=== PATIENT | female | born 1955 | race Two or more races ===

== ENCOUNTER 2016-05-07 11:37 | Emergency (ER) | payer SELFPAY ==
[~2016-05-07] VITALS: Ht 165.1 cm; Wt 81.6 kg
[2016-05-07] MEDS ORDERED: cefTRIAXone 1GM/50ML D5W 50 ML IV ONE (12:15)
[2016-05-07] MEDS ORDERED: cloNIDine HCL 0.1 MG TAB PO ONE (12:15)
[2016-05-07] MEDS ORDERED: LORazepam 2MG/ML-1ML VIAL IV ONE (12:15)
[2016-05-07] MEDS ORDERED: SODIUM CHLORIDE 0.9% 1,000 ML IV ONE (12:15)
[2016-05-07] MEDS ORDERED: SODIUM CHLORIDE 0.9% 250 ML IV ONE (12:15)
[2016-05-07 12:51] LABS: Basophils # (auto) 0.1 uL; Basophils % (auto) 0.8 % (0.0-2.0); Eosinophils # (auto) 0.1 uL; Eosinophils % (auto) 1.1 % (0.0-7.0); Hematocrit 41.4 % (36.0-46.0); Hemoglobin 13.3 g/dL (12.2-16.2); Lymphocytes # (auto) 2.8 uL; Lymphocytes % (auto) 37.4 % (10.0-50.0); Mean Corpuscular Hemoglobin 28.2 pg (28.0-32.0); Mean Corpuscular Hgb Conc. 32.2 g/dL (32.0-36.0); Mean Corpuscular Volume 87.5 fL (80.0-100.0); Mean Platelet Volume 10.3 fL (7.4-10.4); Monocytes # (auto) 0.5 uL; Monocytes % (auto) 6.8 % (0.0-12.0); Neutrophils # (auto) 4.1 uL; Neutrophils % (auto) 53.9 % (37.0-80.0); Platelet Count (auto) 238 10^3/uL (140-450); Red Cell Distribution Width 13.1 % (11.6-16.0); White Blood Cell 7.6 10^3/uL (4.4-10.8)
[2016-05-07 13:01] VITALS: BP 162/80
[2016-05-07 13:15] LABS: Albumin 3.3 g/dL (3.4-5.0); BUN/Creatinine Ratio 23.3; Bilirubin, Total 0.6 mg/dL (0.2-1.0); Calcium 8.6 mg/dL (8.5-10.1); Total Protein 7.2 g/dL (6.4-8.2)
[2016-05-07] MEDS ORDERED: InsuLIN REG 1unit/0.01ml Soln (100units/ml) IV ONE (13:45)
== END 2016-05-07 15:08 | disposition home or self-care (01) ==
LOC: ER 11:43
DX: I10 Essential (primary) hypertension (principal); E11.621 Type 2 diabetes mellitus with foot ulcer; E11.65 Type 2 diabetes mellitus with hyperglycemia
CPT/HCPCS: 36415; 70450; 71010; 80053; 84484; 85025; 93005; 96361; 96365; 96375; 99285; J0696; J2060; J7030

== ENCOUNTER 2016-05-30 14:28 | Inpatient (IN) | payer MEDICAID ==
[~2016-05-30] VITALS: Ht 165.1 cm; Wt 87.0 kg
[2016-05-30] MEDS ORDERED: SODIUM CHLORIDE 0.9% 1,000 ML IV ONE ×2 (15:55→18:15)
[2016-05-30] MEDS ORDERED: METOCLOPRAMIDE HCL 5MG/ml INJ 2ml VIAL IV ONE (16:00)
[2016-05-30] MEDS ORDERED: LABETALOL HCL 5 MG/ML 4ML SYRINGE IV ONE (16:00)
[2016-05-30] MEDS ORDERED: cefTRIAXone 1GM/50ML D5W 50 ML IV ONE (16:00)
[2016-05-30] MEDS ORDERED: KETOROLAC TROMETH 30 MG/ML 1ML VIAL IV ONE (16:00)
[2016-05-30 16:50] LABS: Basophils # (auto) 0.1 uL; Basophils % (auto) 0.6 % (0.0-2.0); Eosinophils # (auto) 0.1 uL; Hematocrit 42.2 % (36.0-46.0); Hemoglobin 14.3 g/dL (12.2-16.2); Lymphocytes # (auto) 3.6 uL; Mean Corpuscular Hemoglobin 29.5 pg (28.0-32.0); Mean Corpuscular Hgb Conc. 33.8 g/dL (32.0-36.0); Mean Corpuscular Volume 87.3 fL (80.0-100.0); Mean Platelet Volume 9.8 fL (7.4-10.4); Monocytes # (auto) 0.5 uL; Monocytes % (auto) 5.9 % (0.0-12.0); Neutrophils # (auto) 4.5 uL; Neutrophils % (auto) 51.5 % (37.0-80.0); Platelet Count (auto) 267 10^3/uL (140-450); Red Cell Distribution Width 12.9 % (11.6-16.0); White Blood Cell 8.8 10^3/uL (4.4-10.8)
[2016-05-30 17:00] LABS: Albumin 3.3 g/dL (3.4-5.0); BUN/Creatinine Ratio 36.2; Bilirubin, Total 0.5 mg/dL (0.2-1.0); Magnesium 2.2 mg/dL (1.6-2.6); Potassium 3.9 mmol/L (3.5-5.1); Total Protein 7.4 g/dL (6.4-8.2)
[2016-05-30] MEDS ORDERED: TEMAZEPAM 15 MG CAP PO PRN (18:15)
[2016-05-30] MEDS ORDERED: ONDANSETRON HCL 4 MG/2 ML VIAL IV PRN (18:15)
[2016-05-30] MEDS ORDERED: VANCOMYCIN PER PHARMACY 0 MG IV SCH (18:15)
[2016-05-30] MEDS ORDERED: ACETAMINOPHEN 325 MG TAB PO PRN (18:15)
[2016-05-30] MEDS ORDERED: MORPHINE SULF INJ 2 MG/ML SYRINGE 1ML IV PRN (18:15)
[2016-05-30] MEDS ORDERED: DEXTROSE (50%) 50ML SYRG IV PRN (18:15)
[2016-05-30] MEDS ORDERED: VALSARTAN 80 MG TAB PO ONE ×2 (18:30→19:30)
[2016-05-30] MEDS ORDERED: amLODIPine BESYLATE 5 MG TAB PO ONE (18:30)
[2016-05-30] MEDS: VANCOMYCIN 750 MG in D5W 5% 250 ML IV SCH (19:44)
[2016-05-30 21:00] VITALS: BP 156/71
[2016-05-30] MEDS: ACCU-CHEK COMFORT CURVE STRIP VI SCH (21:29)
[2016-05-30] MEDS: InsuLIN REG 1unit/0.01ml Soln (100units/ml) SC SCH (21:30)
[2016-05-30 22:00] VITALS: BP 140/69
[2016-05-31 05:00] VITALS: BP 160/83
[2016-05-31] MEDS: ACCU-CHEK COMFORT CURVE STRIP VI SCH ×4 (05:53→20:54)
[2016-05-31] MEDS: InsuLIN REG 1unit/0.01ml Soln (100units/ml) SC SCH ×4 (06:10→20:57)
[2016-05-31] MEDS: VANCOMYCIN 750 MG in D5W 5% 250 ML IV SCH ×2 (06:11→18:43)
[2016-05-31 07:07] LABS: Calcium 8.2 mg/dL (8.5-10.1); Potassium 3.8 mmol/L (3.5-5.1)
[2016-05-31] MEDS: HYDROcodone-ACET 5/325MG TAB PO PRN (07:20)
[2016-05-31 08:00] VITALS: BP 125/61
[2016-05-31 08:58] VITALS: BP 125/61
[2016-05-31] MEDS: amLODIPine BESYLATE 5 MG TAB PO SCH (10:11)
[2016-05-31] MEDS: VALSARTAN 80 MG TAB PO SCH (10:12)
[2016-05-31] MEDS: NovoloG Insulin 1unit/0.01ml Soln (100units/ml) SC SCH ×2 (11:30→18:25)
[2016-05-31 13:00] VITALS: BP 154/81
[2016-05-31 17:00] VITALS: BP 151/79
[2016-05-31] MEDS: DOCUSATE SOD 100 MG CAP PO PRN (17:03)
[2016-05-31] MEDS: INSULIN DETEMIR(LEVEMIR) 1unit/0.01ml Soln (100units/ml) SC SCH (20:56)
[2016-05-31 21:30] VITALS: BP 164/79
[2016-06-01 05:22] VITALS: BP 159/76
[2016-06-01] MEDS: ACCU-CHEK COMFORT CURVE STRIP VI SCH ×4 (06:00→21:51)
[2016-06-01] MEDS: NovoloG Insulin 1unit/0.01ml Soln (100units/ml) SC SCH ×3 (06:00→17:00)
[2016-06-01] MEDS: InsuLIN REG 1unit/0.01ml Soln (100units/ml) SC SCH ×4 (06:00→22:00)
[2016-06-01] MEDS: VANCOMYCIN 750 MG in D5W 5% 250 ML IV SCH ×2 (06:01→19:03)
[2016-06-01 06:21] LABS: Basophils # (auto) 0 uL; Basophils % (auto) 0.6 % (0.0-2.0); Eosinophils # (auto) 0.1 uL; Eosinophils % (auto) 2.1 % (0.0-7.0); Hematocrit 38.6 % (36.0-46.0); Hemoglobin 12.9 g/dL (12.2-16.2); Lymphocytes # (auto) 3.4 uL; Lymphocytes % (auto) 48.2 % (10.0-50.0); Mean Corpuscular Hemoglobin 29.2 pg (28.0-32.0); Mean Corpuscular Hgb Conc. 33.4 g/dL (32.0-36.0); Mean Corpuscular Volume 87.4 fL (80.0-100.0); Mean Platelet Volume 9.9 fL (7.4-10.4); Monocytes # (auto) 0.5 uL; Monocytes % (auto) 6.7 % (0.0-12.0); Neutrophils % (auto) 42.4 % (37.0-80.0); Platelet Count (auto) 259 10^3/uL (140-450); Red Cell Distribution Width 12.9 % (11.6-16.0)
[2016-06-01 06:56] LABS: Potassium 4.1 mmol/L (3.5-5.1)
[2016-06-01 07:08] LABS: BUN/Creatinine Ratio 25.9; Calcium 8.2 mg/dL (8.5-10.1); Magnesium 2.1 mg/dL (1.6-2.6)
[2016-06-01 08:00] VITALS: BP 158/65
[2016-06-01 08:36] VITALS: BP 167/68
[2016-06-01] MEDS: amLODIPine BESYLATE 5 MG TAB PO SCH (10:14)
[2016-06-01] MEDS: VALSARTAN 80 MG TAB PO SCH (10:15)
[2016-06-01 12:26] LABS: Phosphorus 3.9 mg/dL (2.5-4.90)
[2016-06-01 12:36] LABS: Cholesterol 181 mg/dL (<200); HDL Cholesterol 38 mg/dL (40-59); LDL Cholesterol 114 mg/dL (<100); Triglycerides 156 mg/dL (<150)
[2016-06-01 13:00] VITALS: BP 166/111
[2016-06-01 17:01] VITALS: BP 150/53
[2016-06-01] MEDS: HYDROcodone-ACET 5/325MG TAB PO PRN (19:04)
[2016-06-01] MEDS: ATORVASTATIN 20 MG TAB PO SCH (21:50)
[2016-06-01] MEDS: ASCORBIC ACID 500 MG TAB PO SCH (21:50)
[2016-06-01] MEDS: MULTIPLE VITAMIN TAB PO SCH (21:51)
[2016-06-01 22:00] VITALS: BP 126/60
[2016-06-01] MEDS: INSULIN DETEMIR(LEVEMIR) 1unit/0.01ml Soln (100units/ml) SC SCH (22:00)
[2016-06-02 04:30] VITALS: BP 121/63
[2016-06-02] MEDS: ACCU-CHEK COMFORT CURVE STRIP VI SCH ×4 (06:48→21:32)
[2016-06-02] MEDS: InsuLIN REG 1unit/0.01ml Soln (100units/ml) SC SCH ×4 (07:00→21:33)
[2016-06-02] MEDS: NovoloG Insulin 1unit/0.01ml Soln (100units/ml) SC SCH ×3 (07:00→17:00)
[2016-06-02] MEDS: VANCOMYCIN 750 MG in D5W 5% 250 ML IV SCH ×2 (07:08→19:29)
[2016-06-02 08:00] VITALS: BP 163/67
[2016-06-02 09:34] VITALS: BP 163/67
[2016-06-02] MEDS: VALSARTAN 80 MG TAB PO SCH (09:46)
[2016-06-02] MEDS: ASCORBIC ACID 500 MG TAB PO SCH ×2 (09:47→21:36)
[2016-06-02] MEDS: MULTIPLE VITAMIN TAB PO SCH ×2 (09:47→21:36)
[2016-06-02] MEDS: amLODIPine BESYLATE 5 MG TAB PO SCH (09:48)
[2016-06-02 12:52] VITALS: BP 151/59
[2016-06-02 15:56] VITALS: BP 161/69
[2016-06-02] MEDS: ATORVASTATIN 20 MG TAB PO SCH (21:36)
[2016-06-02] MEDS: INSULIN DETEMIR(LEVEMIR) 1unit/0.01ml Soln (100units/ml) SC SCH (21:48)
[2016-06-02 21:52] VITALS: BP 147/82
[2016-06-03 04:46] VITALS: BP 145/74
[2016-06-03 06:14] LABS: Basophils # (auto) 0 uL; Basophils % (auto) 0.6 % (0.0-2.0); Eosinophils # (auto) 0.1 uL; Hematocrit 42.2 % (36.0-46.0); Lymphocytes # (auto) 2.9 uL; Lymphocytes % (auto) 40.2 % (10.0-50.0); Mean Corpuscular Hemoglobin 29.1 pg (28.0-32.0); Mean Corpuscular Hgb Conc. 33.2 g/dL (32.0-36.0); Mean Corpuscular Volume 87.7 fL (80.0-100.0); Mean Platelet Volume 9.9 fL (7.4-10.4); Monocytes # (auto) 0.5 uL; Monocytes % (auto) 6.8 % (0.0-12.0); Neutrophils # (auto) 3.7 uL; Neutrophils % (auto) 50.4 % (37.0-80.0); Platelet Count (auto) 299 10^3/uL (140-450); Red Cell Distribution Width 12.9 % (11.6-16.0); White Blood Cell 7.3 10^3/uL (4.4-10.8)
[2016-06-03 06:37] LABS: BUN/Creatinine Ratio 29.4; Potassium 4.4 mmol/L (3.5-5.1)
[2016-06-03] MEDS: NovoloG Insulin 1unit/0.01ml Soln (100units/ml) SC SCH ×3 (06:38→17:45)
[2016-06-03] MEDS: InsuLIN REG 1unit/0.01ml Soln (100units/ml) SC SCH ×4 (06:38→21:41)
[2016-06-03] MEDS: VANCOMYCIN 750 MG in D5W 5% 250 ML IV SCH ×2 (06:38→18:48)
[2016-06-03] MEDS: ACCU-CHEK COMFORT CURVE STRIP VI SCH ×4 (06:38→21:44)
[2016-06-03 07:45] VITALS: BP 151/80
[2016-06-03 08:35] VITALS: BP 157/80
[2016-06-03] MEDS: ASCORBIC ACID 500 MG TAB PO SCH ×2 (09:20→21:44)
[2016-06-03] MEDS: MULTIPLE VITAMIN TAB PO SCH ×2 (09:20→21:43)
[2016-06-03] MEDS: VALSARTAN 80 MG TAB PO SCH (09:21)
[2016-06-03] MEDS: amLODIPine BESYLATE 5 MG TAB PO SCH (09:22)
[2016-06-03 12:25] VITALS: BP 141/81
[2016-06-03 16:37] VITALS: BP 156/71
[2016-06-03] MEDS: ATORVASTATIN 20 MG TAB PO SCH (21:43)
[2016-06-03] MEDS: DOCUSATE SOD 100 MG CAP PO PRN (21:44)
[2016-06-03] MEDS: INSULIN DETEMIR(LEVEMIR) 1unit/0.01ml Soln (100units/ml) SC SCH (21:46)
[2016-06-03 22:00] VITALS: BP 151/69
[2016-06-04 05:00] VITALS: BP 159/70
[2016-06-04] MEDS: ACCU-CHEK COMFORT CURVE STRIP VI SCH ×4 (06:26→21:33)
[2016-06-04] MEDS: VANCOMYCIN 750 MG in D5W 5% 250 ML IV SCH (06:26)
[2016-06-04] MEDS: InsuLIN REG 1unit/0.01ml Soln (100units/ml) SC SCH ×4 (06:33→21:44)
[2016-06-04] MEDS: NovoloG Insulin 1unit/0.01ml Soln (100units/ml) SC SCH ×3 (06:33→17:00)
[2016-06-04 08:00] VITALS: BP 167/71
[2016-06-04 09:00] VITALS: BP 167/71
[2016-06-04] MEDS: ASCORBIC ACID 500 MG TAB PO SCH ×2 (10:18→21:45)
[2016-06-04] MEDS: VALSARTAN 80 MG TAB PO SCH (10:18)
[2016-06-04] MEDS: MULTIPLE VITAMIN TAB PO SCH ×2 (10:18→21:45)
[2016-06-04] MEDS: DOCUSATE SOD 100 MG CAP PO PRN ×2 (10:19→21:45)
[2016-06-04] MEDS: amLODIPine BESYLATE 5 MG TAB PO SCH (10:19)
[2016-06-04 13:05] VITALS: BP 129/76
[2016-06-04 17:00] VITALS: BP 137/59
[2016-06-04] MEDS: VANCOMYCIN 1GM/250ML D5W 250 ML IV SCH (18:56)
[2016-06-04] MEDS: INSULIN DETEMIR(LEVEMIR) 1unit/0.01ml Soln (100units/ml) SC SCH (21:44)
[2016-06-04] MEDS: ATORVASTATIN 20 MG TAB PO SCH (21:45)
[2016-06-04 22:00] VITALS: BP 136/67
[2016-06-05 05:13] VITALS: BP 148/77
[2016-06-05 06:16] LABS: Basophils # (auto) 0.1 uL; Basophils % (auto) 0.8 % (0.0-2.0); Eosinophils # (auto) 0.1 uL; Eosinophils % (auto) 1.6 % (0.0-7.0); Hematocrit 42.3 % (36.0-46.0); Hemoglobin 14.1 g/dL (12.2-16.2); Lymphocytes # (auto) 3.1 uL; Lymphocytes % (auto) 43.7 % (10.0-50.0); Mean Corpuscular Hgb Conc. 33.4 g/dL (32.0-36.0); Mean Corpuscular Volume 86.8 fL (80.0-100.0); Mean Platelet Volume 9.6 fL (7.4-10.4); Monocytes # (auto) 0.5 uL; Monocytes % (auto) 7.8 % (0.0-12.0); Neutrophils # (auto) 3.3 uL; Neutrophils % (auto) 46.1 % (37.0-80.0); Platelet Count (auto) 297 10^3/uL (140-450); Red Cell Distribution Width 12.9 % (11.6-16.0); White Blood Cell 7.1 10^3/uL (4.4-10.8)
[2016-06-05] MEDS: VANCOMYCIN 1GM/250ML D5W 250 ML IV SCH ×2 (06:25→18:34)
[2016-06-05] MEDS: ACCU-CHEK COMFORT CURVE STRIP VI SCH ×4 (06:26→21:52)
[2016-06-05] MEDS: InsuLIN REG 1unit/0.01ml Soln (100units/ml) SC SCH ×4 (06:34→21:53)
[2016-06-05] MEDS: NovoloG Insulin 1unit/0.01ml Soln (100units/ml) SC SCH ×3 (06:34→17:27)
[2016-06-05 06:43] LABS: Calcium 8.7 mg/dL (8.5-10.1); Potassium 4.2 mmol/L (3.5-5.1)
[2016-06-05 06:45] LABS: BUN/Creatinine Ratio 31.1
[2016-06-05 09:00] VITALS: BP 131/50
[2016-06-05] MEDS: amLODIPine BESYLATE 5 MG TAB PO SCH (09:45)
[2016-06-05] MEDS: ASCORBIC ACID 500 MG TAB PO SCH ×2 (09:45→21:52)
[2016-06-05] MEDS: MULTIPLE VITAMIN TAB PO SCH ×2 (09:45→21:52)
[2016-06-05] MEDS: VALSARTAN 80 MG TAB PO SCH (09:46)
[2016-06-05 12:36] VITALS: BP 167/80
[2016-06-05] MEDS ORDERED: LISINOPRIL 20 MG TAB PO ONE (13:45)
[2016-06-05 16:34] VITALS: BP 130/67
[2016-06-05] MEDS: INSULIN DETEMIR(LEVEMIR) 1unit/0.01ml Soln (100units/ml) SC SCH (21:44)
[2016-06-05] MEDS: ATORVASTATIN 20 MG TAB PO SCH (21:51)
[2016-06-05 21:53] VITALS: BP 150/73
[2016-06-06 04:40] VITALS: BP 154/73
[2016-06-06 05:19] LABS: Basophils # (auto) 0.1 uL; Basophils % (auto) 0.7 % (0.0-2.0); Eosinophils # (auto) 0.2 uL; Eosinophils % (auto) 2.1 % (0.0-7.0); Hematocrit 40.3 % (36.0-46.0); Hemoglobin 13.4 g/dL (12.2-16.2); Lymphocytes # (auto) 3.3 uL; Lymphocytes % (auto) 40.1 % (10.0-50.0); Mean Corpuscular Hemoglobin 29.2 pg (28.0-32.0); Mean Corpuscular Hgb Conc. 33.2 g/dL (32.0-36.0); Mean Corpuscular Volume 87.8 fL (80.0-100.0); Mean Platelet Volume 9.5 fL (7.4-10.4); Monocytes # (auto) 0.6 uL; Monocytes % (auto) 7.6 % (0.0-12.0); Neutrophils % (auto) 49.5 % (37.0-80.0); Platelet Count (auto) 289 10^3/uL (140-450); Red Cell Distribution Width 12.7 % (11.6-16.0); White Blood Cell 8.1 10^3/uL (4.4-10.8)
[2016-06-06 05:35] LABS: BUN/Creatinine Ratio 30.7; Calcium 8.7 mg/dL (8.5-10.1); INR 0.99 (0.9-1.15); Partial Thromboplastin Time 27.5 sec (22.64-33.71); Prothrombin Time 10.2 sec (9.37-12.3)
[2016-06-06 05:37] LABS: Bilirubin, Total 0.5 mg/dL (0.2-1.0); Total Protein 6.6 g/dL (6.4-8.2)
[2016-06-06] MEDS: VANCOMYCIN 1GM/250ML D5W 250 ML IV SCH ×2 (06:30→19:37)
[2016-06-06] MEDS: ACCU-CHEK COMFORT CURVE STRIP VI SCH ×4 (06:36→22:13)
[2016-06-06] MEDS: InsuLIN REG 1unit/0.01ml Soln (100units/ml) SC SCH ×4 (06:36→22:14)
[2016-06-06] MEDS: NovoloG Insulin 1unit/0.01ml Soln (100units/ml) SC SCH ×3 (06:36→17:00)
[2016-06-06 08:00] VITALS: BP 108/71
[2016-06-06 08:12] VITALS: BP 150/70
[2016-06-06] MEDS: MULTIPLE VITAMIN TAB PO SCH ×2 (10:00→21:48)
[2016-06-06] MEDS: amLODIPine BESYLATE 5 MG TAB PO SCH (10:00)
[2016-06-06] MEDS: VALSARTAN 80 MG TAB PO SCH (10:00)
[2016-06-06] MEDS: ASCORBIC ACID 500 MG TAB PO SCH ×2 (10:00→21:48)
[2016-06-06] MEDS ORDERED: LISINOPRIL 20 MG TAB PO SCH (10:00)
[2016-06-06 11:26] VITALS: BP 139/70
[2016-06-06] MEDS ORDERED: BUPIVACAINE 0.75% INJ 10ML MPV SDV IJ ONE (15:43)
[2016-06-06] MEDS ORDERED: ceFAZolin 1GM/50ML D5W 50 ML IV ONE (16:05)
[2016-06-06] MEDS ORDERED: fentaNYL CITRATE 100 MCG/2 ML VL ONE (16:09)
[2016-06-06] MEDS ORDERED: DEXAMETHASONE SOD PHOS 10MG/1ML VIAL INJ IV ONE (16:11)
[2016-06-06] MEDS ORDERED: ONDANSETRON HCL 4 MG/2 ML VIAL IV ONE ×2 (16:11→16:45)
[2016-06-06] MEDS ORDERED: MIDAZOLAM HCL 1MG/1ML-2 ML VIAL ONE (16:12)
[2016-06-06] MEDS ORDERED: HYDROmorphone HCL 2 MG/ML VL IV PRN (16:45)
[2016-06-06] MEDS ORDERED: LABETALOL HCL 5 MG/ML 4ML SYRINGE IV PRN (16:45)
[2016-06-06 18:05] VITALS: BP 162/82
[2016-06-06] MEDS: HYDROcodone-ACET 5/325MG TAB PO PRN (21:02)
[2016-06-06] MEDS: ATORVASTATIN 20 MG TAB PO SCH (21:48)
[2016-06-06 22:00] VITALS: BP 149/76
[2016-06-06] MEDS: DOCUSATE SOD 100 MG CAP PO PRN (22:13)
[2016-06-06] MEDS: INSULIN DETEMIR(LEVEMIR) 1unit/0.01ml Soln (100units/ml) SC SCH (22:14)
[2016-06-07 05:00] VITALS: BP 171/77
[2016-06-07] MEDS: VANCOMYCIN 1GM/250ML D5W 250 ML IV SCH (06:56)
[2016-06-07] MEDS: InsuLIN REG 1unit/0.01ml Soln (100units/ml) SC SCH ×2 (07:01→11:50)
[2016-06-07] MEDS: NovoloG Insulin 1unit/0.01ml Soln (100units/ml) SC SCH ×2 (07:04→11:51)
[2016-06-07] MEDS: ACCU-CHEK COMFORT CURVE STRIP VI SCH ×2 (07:04→11:51)
[2016-06-07 09:00] VITALS: BP 157/76
[2016-06-07] MEDS: ASCORBIC ACID 500 MG TAB PO SCH (09:41)
[2016-06-07] MEDS: MULTIPLE VITAMIN TAB PO SCH (09:41)
[2016-06-07] MEDS: VALSARTAN 80 MG TAB PO SCH (09:41)
[2016-06-07] MEDS: amLODIPine BESYLATE 5 MG TAB PO SCH (09:42)
[2016-06-07] MEDS ORDERED: AMOXICILLIN & POT CLAVULANATE 875 MG TAB PO ONE (11:00)
[2016-06-07] MEDS ORDERED: LEVEMIR SC (11:29)
[2016-06-07] MEDS ORDERED: ATOR20TA50 PO (11:29)
[2016-06-07] MEDS ORDERED: AML5T PO (11:29)
[2016-06-07] MEDS ORDERED: AMOX-277 PO (11:29)
[2016-06-07] MEDS ORDERED: VALS320T15 PO (11:29)
[2016-06-07] MEDS ORDERED: VALSARTAN 80 MG TAB PO ONE (11:30)
[2016-06-07] MEDS ORDERED: ASPI81CH4 PO (11:31)
[2016-06-07 11:34] VITALS: BP 159/67
[2016-06-07 15:35] VITALS: BP 159/67
[2016-06-07] MEDS ORDERED: AMOXICILLIN & POT CLAVULANATE 875 MG TAB PO SCH (22:00)
== END 2016-06-07 19:08 | disposition home or self-care (01) | DRG 361 ==
LOC: ER 14:28 → WEST WING 14:29
PROVIDERS: ADMIT Internal Medicine; ATTEND Internal Medicine
PROC: 0HRMXK3 Replacement of Right Foot Skin with Nonautologous Tissue Substitute, Full Thickness, External Approach (ICD-10-PCS; 2016-06-06)
PROC: 0JBQ0ZZ Excision of Right Foot Subcutaneous Tissue and Fascia, Open Approach (ICD-10-PCS; principal; 2016-06-06 16:11)
DX: E11.621 Type 2 diabetes mellitus with foot ulcer (principal); L97.519 Non-pressure chronic ulcer of other part of right foot with unspecified severity; E11.65 Type 2 diabetes mellitus with hyperglycemia; I11.0 Hypertensive heart disease with heart failure; I70.92 Chronic total occlusion of artery of the extremities; I50.30 Unspecified diastolic (congestive) heart failure; S91.301A Unspecified open wound, right foot, initial encounter; E44.1 Mild protein-calorie malnutrition; I73.9 Peripheral vascular disease, unspecified; L02.619 Cutaneous abscess of unspecified foot; L03.119 Cellulitis of unspecified part of limb; E78.5 Hyperlipidemia, unspecified; E11.628 Type 2 diabetes mellitus with other skin complications; X58.XXXA Exposure to other specified factors, initial encounter; Z83.3 Family history of diabetes mellitus; Z68.31 Body mass index [BMI] 31.0-31.9, adult; Y93.89 Activity, other specified; Y92.89 Other specified places as the place of occurrence of the external cause; Y99.8 Other external cause status
CPT/HCPCS: 36415; 71010; 71020; 73630; 80048; 80053; 80061; 80202; 82962; 83036; 83735; 84100; 85025; 85610; 85730; 86850; 86900; 86901; 87070; 87077; 87186; 87205; 93005; 93306; 93926; 96361; 96365; 96375; J0690; J0696; J1100; J1815; J1885; J2250; J2405; J3490; J7060

== ENCOUNTER 2019-03-07 10:12 | Inpatient (IN) | payer OTHER, MEDICAID ==
[~2019-03-07] VITALS: Ht 167.6 cm; Wt 85.6 kg
[~2019-03-07 10:12] MED LIST: AML5T PO; AMOX-277 PO; ASPI81CH4 PO; ATOR20TA50 PO; LEVEMIR SC; VALS320T15 PO
[2019-03-07 11:58] LABS: Basophils # (auto) 0.1 uL; Eosinophils # (auto) 0.1 uL; Eosinophils % (auto) 1.5 % (0.0-7.0); Hematocrit 43.5 % (36.0-46.0); Hemoglobin 14.6 g/dL (12.2-16.2); Lymphocytes # (auto) 2.6 uL; Lymphocytes % (auto) 36.5 % (10.0-50.0); Mean Corpuscular Hemoglobin 29.6 pg (28.0-32.0); Mean Corpuscular Hgb Conc. 33.6 g/dL (32.0-36.0); Monocytes # (auto) 0.4 uL; Monocytes % (auto) 6.2 % (0.0-12.0); Neutrophils # (auto) 3.8 uL; Neutrophils % (auto) 54.8 % (37.0-80.0); Nucleated Red Blood Cells % 0.1 %; Platelet Count (auto) 253 10^3/uL (140-450); Red Blood Cells 4.94 10^6/uL (4.0-5.20)
[2019-03-07 12:21] LABS: Albumin 3.1 g/dL (3.4-5.0); Calcium 8.7 mg/dL (8.5-10.1); Potassium 4.4 mmol/L (3.5-5.1)
[2019-03-07 12:25] LABS: Bilirubin, Total 0.4 mg/dL (0.2-1.0); Total Protein 7.6 g/dL (6.4-8.2)
[2019-03-07 15:13] LABS: Urine Bacteria FEW /hpf (None Seen); Urine Blood Negative /uL (Negative); Urine Mucus FEW (None Seen); Urine Specific Gravity 1.031 (1.001-1.035); Urine WBC 3 /hpf (0 - 5)
[2019-03-07] MEDS ORDERED: CLINDAMYCIN 600MG IV 50 ML IV ONE (17:15)
[2019-03-07] MEDS ORDERED: SODIUM CHLORIDE 0.9% 1,000 ML IV ONE (17:15)
[2019-03-07] MEDS ORDERED: ACETAMINOPHEN 325 MG TAB PO ONE (17:15)
[2019-03-07] MEDS ORDERED: HYDROcodone-ACET 5/325MG TAB PO ONE (17:15)
[2019-03-07] MEDS ORDERED: MORPHINE SULF INJ 2 MG/ML SYRINGE 1ML IV PRN (18:15)
[2019-03-07] MEDS ORDERED: PROMETHAZINE HCL 25 MG/ML 1ML IV PRN (18:15)
[2019-03-07] MEDS ORDERED: LACTULOSE 20Gm/30ML SOLN PO PRN (18:15)
[2019-03-07] MEDS ORDERED: ACETAMINOPHEN 500 MG TAB PO PRN (18:15)
[2019-03-07] MEDS ORDERED: TEMAZEPAM 15 MG CAP PO PRN (18:15)
[2019-03-07] MEDS ORDERED: DEXTROSE (50%) 50ML SYRG IV PRN (18:15)
[2019-03-07] MEDS ORDERED: traMADol HCL 50 MG TAB PO PRN (18:15)
[2019-03-07] MEDS ORDERED: NITROGLYCERIN 0.4 MG SL TAB SL PRN (18:15)
[2019-03-07] MEDS: SODIUM CHLORIDE 0.9% 1,000 ML IV SCH (18:23)
[2019-03-07] MEDS: ACCU-CHEK COMFORT CURVE STRIP VI SCH (20:00)
[2019-03-07] MEDS: InsuLIN REG 1unit/0.01ml Soln (100units/ml) SC SCH (20:00)
--- NOTE | 2019-03-07 20:07 | NUR ---
Telemetry admit from [facility] admitted to Telemetry unit after SBAR received. Patient oriented to Mikayla Zhou, primary RN, unit, room, bed, and unit policies regarding patient care and visiting hours. Patient now on continuous telemetry monitoring, tele box 66# and telemetry reading on arrival to unit is NSR [id number]]. Patient placed on bedside oxygen, weighed by bedscale and encouraged to call if they need something. All questions and concerns addressed, patient verbalized understanding. Note:
[2019-03-07] MEDS: CLINDAMYCIN 600MG IV 50 ML IV SCH (20:41)
[2019-03-07] MEDS: ATORVASTATIN 20 MG TAB PO SCH (21:03)
[2019-03-07] MEDS: amLODIPine BESYLATE 5 MG TAB PO SCH (21:03)
[2019-03-07] MEDS: INSULIN DETEMIR 20 UNIT SC SCH (22:00)
[2019-03-08] VITALS (7 sets, daily range): BP systolic 136–179; BP diastolic 62–91
[2019-03-08] MEDS: ACCU-CHEK COMFORT CURVE STRIP VI SCH ×7 (04:00→23:10)
[2019-03-08] MEDS: InsuLIN REG 1unit/0.01ml Soln (100units/ml) SC SCH ×7 (04:00→23:09)
[2019-03-08] MEDS: SODIUM CHLORIDE 0.9% 1,000 ML IV SCH ×2 (04:06→14:06)
[2019-03-08] MEDS: CLINDAMYCIN 600MG IV 50 ML IV SCH ×3 (04:21→22:51)
[2019-03-08] MEDS ORDERED: VALSARTAN 80 MG TAB PO ONE (05:00)
--- NOTE | 2019-03-08 05:14 | NUR ---
PHOTO OBTAINED OF LEFT FOOT WOUND;PT TOLERATED WELL.
[2019-03-08] MEDS: cefTRIAXone 1GM/50ML D5W 50 ML IV SCH (09:18)
[2019-03-08] MEDS: ENOXAPARIN SOD 40 MG/0.4 ML SYRINGE SC SCH (10:52)
[2019-03-08] MEDS: VALSARTAN 80 MG TAB PO SCH (10:53)
[2019-03-08] MEDS: amLODIPine BESYLATE 5 MG TAB PO SCH (10:54)
[2019-03-08] MEDS: ASPirin 81 mg TAB PO SCH (10:54)
--- NOTE | 2019-03-08 12:48 | NUR ---
WOUND CARE NOTE: Wound care in to see patient per wound care request regarding "Left Foot Callous with scab". Bedside nurse took photograph of patient's wound upon admission for reference. Patient is 63 years old female with admitting diagnosis of Foot Cellulitis. Patient with history of DM, High Lipids, htn. Patient is resting in bed in Rm. 297B. She's awake, alert and oriented. Patient is in no stated pain at this time. She's able to assist in turning and repositioning and her Morris score is 23. Noted patient's L plantar foot at metatarsal head has 2.5x3cm black calloused wound with green blistering to surrounding skin. No drainage/odor noted at this time, however patient states when she walks on it, it has bloody purulent drainage. Cleansed patient's R foot wound with Betadine and left open to air. Her L plantar foot also has yellow circular callous ulceration that is clean and dry. Patient reported that she just noticed it few days ago but he has not seen a administrative office specialist for it. Patient's Diabetic Foot care/wound care education provided, verbalized understanding. Patient has pending podiatry consult. No other wound noted. No further wound care monitoring needed at this time. RECOMMENDATION: Nursing to continue with BID /PRN cleaning of Rt plantar foot wound per MD order, podiatry consult, elevate affected extremity on pillows. Addendum: 03/08/19 at 1817 by Mary Gilbert RN Amended: Links added.
[2019-03-08] MEDS: INSULIN DETEMIR 20 UNIT SC SCH (22:00)
--- NOTE | 2019-03-08 22:10 | NUR ---
IV removal IV DC'd with clean sterile technique due to infiltration, catheter fully intact. Pressure dressing applied to site. Patient tolerated well. NOTE:
--- NOTE | 2019-03-08 22:49 | NUR ---
IV insertion IV access obtained, via clean sterile technique by inserting 22 gauge catheter at after 4 attempt(s) by 2 nurses. IV secured properly. No trauma to site. Patient tolerated well. NOTE:
[2019-03-08] MEDS: ATORVASTATIN 20 MG TAB PO SCH (23:01)
--- NOTE | 2019-03-08 23:23 | NUR ---
Wound care performed to heels per MD order, pt tolerated well
[2019-03-09] MEDS: ACCU-CHEK COMFORT CURVE STRIP VI SCH ×5 (04:18→21:38)
[2019-03-09] MEDS: InsuLIN REG 1unit/0.01ml Soln (100units/ml) SC SCH ×4 (04:19→17:22)
[2019-03-09] MEDS: SODIUM CHLORIDE 0.9% 1,000 ML IV SCH ×3 (04:19→21:39)
[2019-03-09 05:00] VITALS: BP 149/71
[2019-03-09] MEDS: CLINDAMYCIN 600MG IV 50 ML IV SCH ×3 (05:23→21:37)
[2019-03-09 05:51] LABS: Basophils # (auto) 0.1 uL; Basophils % (auto) 1.3 % (0.0-2.0); Eosinophils # (auto) 0.1 uL; Eosinophils % (auto) 2.1 % (0.0-7.0); Hematocrit 39.8 % (36.0-46.0); Hemoglobin 13.6 g/dL (12.2-16.2); Lymphocytes # (auto) 2.9 uL; Lymphocytes % (auto) 45.8 % (10.0-50.0); Mean Corpuscular Hemoglobin 30.1 pg (28.0-32.0); Mean Corpuscular Hgb Conc. 34.3 g/dL (32.0-36.0); Mean Corpuscular Volume 87.9 fL (80.0-100.0); Monocytes # (auto) 0.5 uL; Neutrophils # (auto) 2.7 uL; Neutrophils % (auto) 42.8 % (37.0-80.0); Nucleated Red Blood Cells % 0.1 %; Platelet Count (auto) 239 10^3/uL (140-450); Red Blood Cells 4.53 10^6/uL (4.0-5.20); Red Cell Distribution Width 12.8 % (11.8-14.3); White Blood Cell 6.3 10^3/uL (4.4-10.8)
[2019-03-09 06:04] LABS: Calcium 8.5 mg/dL (8.5-10.1); Magnesium 2.1 mg/dL (1.6-2.6); Potassium 4.7 mmol/L (3.5-5.1)
[2019-03-09 06:06] LABS: BUN/Creatinine Ratio 23.5
--- NOTE | 2019-03-09 07:40 | NUR ---
Opening Shift Note Assumed care of patient, laying in bed resting. No S/S of distress/SOB or pain. Instructed on POC and to call for assist PRN, call light within reach and bed in locked and lowest position. Will continue to monitor for changes Q1hr and PRN.
[2019-03-09 08:00] VITALS: BP 146/96
--- NOTE | 2019-03-09 08:29 | NUR ---
Dr. Huynh on unit regarding patient.
[2019-03-09 09:00] VITALS: BP 134/69
[2019-03-09] MEDS: ASPirin 81 mg TAB PO SCH (09:15)
[2019-03-09] MEDS: cefTRIAXone 1GM/50ML D5W 50 ML IV SCH (09:15)
[2019-03-09] MEDS: VALSARTAN 80 MG TAB PO SCH (09:16)
[2019-03-09] MEDS: amLODIPine BESYLATE 5 MG TAB PO SCH (09:17)
[2019-03-09] MEDS: ENOXAPARIN SOD 40 MG/0.4 ML SYRINGE SC SCH (09:17)
[2019-03-09] MEDS ORDERED: hydrALAZINE HCL 20 MG/ML VL IV PRN (10:45)
[2019-03-09] MEDS ORDERED: DEXTROSE (50%) 50ML SYRG IV PRN (10:45)
[2019-03-09 13:00] VITALS: BP 164/62
[2019-03-09 17:00] VITALS: BP 150/67
--- NOTE | 2019-03-09 19:40 | NUR ---
Opening Shift Note Assumed care of patient, awake and alert x4. No S/S of distress/SOB or pain. Instructed on POC and to call for assistance PRN, will continue to monitor for changes Q1hr and PRN. Instructed to elevate left foot for non pitting edema to great toe area. and son at bedside
[2019-03-09] MEDS: ATORVASTATIN 20 MG TAB PO SCH (21:37)
[2019-03-09] MEDS: INSULIN DETEMIR 20 UNIT SC SCH (21:38)
--- NOTE | 2019-03-09 21:40 | NUR ---
Wound care Wound care performed per MD order to left foot, cleansed with wound cleanser, patted dry with sterile gauze, applied Betadine, open to air. Patient tolerated well
[2019-03-09] MEDS ORDERED: InsuLIN REG 1unit/0.01ml Soln (100units/ml) SC SCH (22:00)
[2019-03-09 22:06] VITALS: BP 168/77
[2019-03-10] MEDS: CLINDAMYCIN 600MG IV 50 ML IV SCH (05:15)
[2019-03-10 05:19] VITALS: BP 148/72
[2019-03-10] MEDS: ACCU-CHEK COMFORT CURVE STRIP VI SCH ×2 (06:11→12:06)
[2019-03-10] MEDS: InsuLIN REG 1unit/0.01ml Soln (100units/ml) SC SCH ×2 (06:11→12:07)
--- NOTE | 2019-03-10 07:45 | NUR ---
Opening Shift Note Assumed care of patient, awake and alert sitting up in bed with breakfast tray. No S/S of distress/SOB or pain. Instructed on POC and to call for assist PRN, bed in locked and lowest position and call light within reach. Will continue to monitor for changes Q1hr and PRN.
--- NOTE | 2019-03-10 07:57 | NUR ---
Patient leaving floor via WC for MRI of foot
[2019-03-10 08:00] VITALS: BP 153/74
[2019-03-10] MEDS: cefTRIAXone 1GM/50ML D5W 50 ML IV SCH (09:00)
[2019-03-10] MEDS: amLODIPine BESYLATE 5 MG TAB PO SCH (09:01)
[2019-03-10] MEDS: VALSARTAN 80 MG TAB PO SCH (09:01)
[2019-03-10] MEDS: ASPirin 81 mg TAB PO SCH (09:01)
[2019-03-10] MEDS: ENOXAPARIN SOD 40 MG/0.4 ML SYRINGE SC SCH (09:02)
[2019-03-10] MEDS ORDERED: AMOX500T86 PO (10:50)
[2019-03-10] MEDS ORDERED: CLIN300C8 PO (10:50)
[2019-03-10] MEDS ORDERED: ASPI-378 PO (10:50)
[2019-03-10] MEDS ORDERED: SACC250C PO (10:50)
[2019-03-10 11:43] VITALS: BP 153/74
--- NOTE | 2019-03-10 12:08 | NUR ---
Dr. Gonsalez on unit regarding patient.
--- NOTE | 2019-03-10 13:29 | NUR ---
Discharge instructions given as ordered. Encourage to follow up with PMD as instructed, and obtain the referral for podiatry at that time. All questions and concerns addressed. Patient verbalized understanding. Medication reconciliation form completed and copy given to patient. No vaccines given, patient refused. IV removed with catheter intact and pressure dressing applied. Telemetry unit returned to ICU. Patient taken to vehicle via wheelchair with all personal belongings, accompanied by staff and family member. No distress noted at time of departure.
== END 2019-03-10 13:29 | disposition home or self-care (01) | DRG 638 ==
LOC: ER 10:12 → TELE 10:13 → TELE-WESTW 19:57
PROVIDERS: ADMIT Internal Medicine; ATTEND Internal Medicine
DX: E11.621 Type 2 diabetes mellitus with foot ulcer (principal); L03.116 Cellulitis of left lower limb; I50.30 Unspecified diastolic (congestive) heart failure; I11.0 Hypertensive heart disease with heart failure; Z82.49 Family history of ischemic heart disease and other diseases of the circulatory system; L84 Corns and callosities; E78.5 Hyperlipidemia, unspecified; L97.529 Non-pressure chronic ulcer of other part of left foot with unspecified severity; Z83.3 Family history of diabetes mellitus; L97.509 Non-pressure chronic ulcer of other part of unspecified foot with unspecified severity; E11.51 Type 2 diabetes mellitus with diabetic peripheral angiopathy without gangrene
CPT/HCPCS: 36415; 73620; 73718; 80048; 80053; 81001; 82962; 83036; 83735; 84132; 85025; 85652; 87040; 93926; 96365; G0378; J0696; J1815; J3490

== ENCOUNTER 2020-12-22 10:41 | Emergency (ER) | payer OTHER, MEDICAID ==
[~2020-12-22] VITALS: Ht 167.6 cm; Wt 81.6 kg
[~2020-12-22 10:41] MED LIST changes: +AMOX500T86 PO; +ASPI-378 PO; -ASPI81CH4 PO; +ASPI81CH74 PO; +CLIN300C8 PO; +SACC250C PO
[2020-12-22] MEDS ORDERED: cloNIDine HCL 0.1 MG TAB PO ONE (11:00)
[2020-12-22 12:29] VITALS: BP 153/84
== END 2020-12-22 12:35 | disposition home or self-care (01) ==
LOC: ER 10:41
DX: I10 Essential (primary) hypertension (principal); E11.9 Type 2 diabetes mellitus without complications; E78.5 Hyperlipidemia, unspecified
CPT/HCPCS: 93005

== ENCOUNTER 2022-04-02 11:16 | Emergency (ER) | payer OTHER, MEDICAID ==
[~2022-04-02] VITALS: Ht 165.1 cm; Wt 81.0 kg
[2022-04-02] MEDS ORDERED: HYDROmorphone HCL 2 MG/ML VL/or syr IM ONE (14:15)
[2022-04-02] MEDS ORDERED: ONDANSETRON HCL 4 MG/2 ML VIAL IM ONE (14:15)
[2022-04-02 16:00] VITALS: BP 180/70
== END 2022-04-02 19:05 | disposition home or self-care (01) ==
LOC: ER 11:16
DX: S43.004A Unspecified dislocation of right shoulder joint, initial encounter (principal); I10 Essential (primary) hypertension; X58.XXXA Exposure to other specified factors, initial encounter; Y93.89 Activity, other specified; Y92.89 Other specified places as the place of occurrence of the external cause; Y99.8 Other external cause status
CPT/HCPCS: 23650; 70450; 73020; 73030; 96372; 99284; J1170; J2405

== ENCOUNTER 2023-01-26 15:44 | Inpatient (IN) | payer OTHER, MEDICAID ==
[~2023-01-26] VITALS: Ht 170.2 cm; Wt 83.0 kg
[~2023-01-26 15:44] MED LIST changes: -AMOX-277 PO; +AMOX875T4 PO; +CLIN300C70 PO; -CLIN300C8 PO; +VALS320T PO; -VALS320T15 PO
[2023-01-26] MEDS ORDERED: SODIUM CHLORIDE 0.9% 1,000 ML IV ONE (16:15)
[2023-01-26 17:42] LABS: Basophils # (auto) 0.1 10 ^3/uL (0-0.2); Eosinophils # (auto) 0 10 ^3/uL (0-0.8)
[2023-01-26 17:44] LABS: Basophils % (auto) 0.7 % (0.0-2.0); Hematocrit 12.6 % (36.0-46.0); Lymphocytes # (auto) 1.7 10 ^3/uL (0.4-5.4); Lymphocytes % (auto) 13.4 % (10.0-50.0); Mean Corpuscular Hemoglobin 25.9 pg (28.0-32.0); Mean Corpuscular Hgb Conc. 30.4 g/dL (32.0-36.0); Mean Corpuscular Volume 85.3 fL (80.0-100.0); Monocytes # (auto) 0.4 10 ^3/uL (0-1.3); Monocytes % (auto) 3.5 % (0.0-12.0); Neutrophils # (auto) 10.2 10 ^3/uL (1.6-8.6); Neutrophils % (auto) 82.4 % (37.0-80.0); Red Blood Cells 1.48 10^6/uL (4.0-5.20); Red Cell Distribution Width 17.5 % (11.8-14.3); White Blood Cell 12.4 10^3/uL (4.4-10.8)
[2023-01-26 17:58] LABS: Alanine Aminotransferase 10 U/L (7-40); Albumin 3.3 g/dL (3.2-4.8); Alkaline Phosphatase 78 U/L (46-116); Anion Gap 10 (5-15); Aspartate Aminotransferase 15 U/L (13-40); BUN/Creatinine Ratio 37.9 (10.0-20.0); Calcium 8.4 mg/dL (8.7-10.4); Carbon Dioxide 18 mmol/L (20-30); Chloride 115 mmol/L (98-107); Glucose 187 mg/dL (74-106); Magnesium 2.5 mg/dL (1.6-2.6); Potassium 5.2 mmol/L (3.5-5.1); Sodium 143 mmol/L (136-145)
[2023-01-26 17:59] LABS: Bilirubin, Total 0.3 mg/dL (0.2-1.0); Total Protein 5.6 g/dL (5.7-8.2)
[2023-01-26 18:13] LABS: Blood Urea Nitrogen 110 mg/dL (9-23)
[2023-01-26 18:17] LABS: Hemoglobin 3.8 g/dL (12.2-16.2)
[2023-01-26 19:39] VITALS: PULSE 90; RESP 100; O2SAT 100
[2023-01-26] MEDS ORDERED: NITROGLYCERIN 0.4 MG SL TAB SL PRN (19:45)
[2023-01-26] MEDS ORDERED: DEXTROSE (50%) 50ML SYRG IV PRN (19:45)
[2023-01-26] MEDS ORDERED: SODIUM ZIRCONIUM CYCL 10 GM PAK PO ONE (19:45)
[2023-01-26] MEDS ORDERED: ONDANSETRON HCL 4 MG/2 ML VIAL IV PRN (19:45)
[2023-01-26] MEDS ORDERED: HYDROcodone-ACET 5/325MG TAB PO PRN (19:45)
[2023-01-26] MEDS ORDERED: DOCUSATE SOD 100 MG CAP PO PRN (19:45)
[2023-01-26] MEDS ORDERED: MORPHINE SULFATE INJ 2 MG/ml SYRG IV PRN (19:45)
[2023-01-26 20:50] VITALS: BP 136/41; PULSE 89; RESP 15; TEMP 97.6
[2023-01-26 21:05] VITALS: BP 139/39; PULSE 89; RESP 14; TEMP 97.7
[2023-01-26] MEDS: ATORVASTATIN 20 MG TAB PO SCH (21:54)
[2023-01-26] MEDS: FAMOTIDINE (10MG/ML) 2ML VL IV SCH (21:54)
[2023-01-26 23:49] VITALS: BP 138/36; PULSE 90; RESP 16; TEMP 97.5
[2023-01-26 23:50] LABS: Urine Amorphous Crystal FEW /hpf (None Seen); Urine Bacteria FEW /hpf (None Seen); Urine Blood 3+ /uL (Negative); Urine Clarity HAZY (Clear); Urine Color Yellow (Yellow); Urine Protein, UAD 2+ (Negative); Urine Specific Gravity 1.014 (1.001-1.035); Urine Urobilinogen Normal (Negative); Urine WBC 26 /hpf (0 - 5); Urine pH 6.5 (5.0-8.0)
[2023-01-26] MEDS: cefTRIAXone 1GM/50ML D5W 50 ML IV SCH (23:58)
[2023-01-27] VITALS (15 sets, daily range): BP systolic 127–157; BP diastolic 41–64; PULSE 86–105; RESP 14–18; TEMP 97.5–98.9; O2SAT 95–97
[2023-01-27] MEDS: ACCU-CHEK COMFORT CURVE STRIP VI SCH ×5 (00:04→21:21)
[2023-01-27] MEDS: InsuLIN REG 1unit/0.01ml Soln (100units/ml) SC SCH ×5 (00:08→21:25)
[2023-01-27] MEDS ORDERED: FLEET ENEMA(ADULT) 135 ML PR ONE ×2 (02:30→07:15)
[2023-01-27 05:54] LABS: Basophils # (auto) 0.1 10 ^3/uL (0-0.2); Basophils % (auto) 0.9 % (0.0-2.0); Eosinophils # (auto) 0 10 ^3/uL (0-0.8); Eosinophils % (auto) 0.3 % (0.0-7.0); Hematocrit 20.2 % (36.0-46.0); Lymphocytes # (auto) 2.1 10 ^3/uL (0.4-5.4); Mean Corpuscular Hemoglobin 28.2 pg (28.0-32.0); Mean Corpuscular Hgb Conc. 32.1 g/dL (32.0-36.0); Mean Corpuscular Volume 87.9 fL (80.0-100.0); Monocytes % (auto) 7.3 % (0.0-12.0); Neutrophils # (auto) 10.1 10 ^3/uL (1.6-8.6); Neutrophils % (auto) 75.5 % (37.0-80.0); Red Cell Distribution Width 16.2 % (11.8-14.3); White Blood Cell 13.3 10^3/uL (4.4-10.8)
[2023-01-27 05:59] LABS: Hemoglobin 6.5 g/dL (12.2-16.2)
[2023-01-27 06:19] LABS: Albumin 3.2 g/dL (3.2-4.8); Alkaline Phosphatase 67 U/L (46-116); Anion Gap 9 (5-15); Aspartate Aminotransferase 16 U/L (13-40); BUN/Creatinine Ratio 34.4 (10.0-20.0); Calcium 8.3 mg/dL (8.7-10.4); Carbon Dioxide 19 mmol/L (20-30); Chloride 116 mmol/L (98-107); Glucose 129 mg/dL (74-106); Potassium 5.2 mmol/L (3.5-5.1); Sodium 144 mmol/L (136-145)
[2023-01-27 06:20] LABS: Bilirubin, Total 0.4 mg/dL (0.2-1.0); Ferritin 7.1 ng/mL (10-291); Total Protein 5.5 g/dL (5.7-8.2)
[2023-01-27 06:21] LABS: Alanine Aminotransferase < 9 U/L (7-40); Blood Urea Nitrogen 98 mg/dL (9-23)
[2023-01-27 06:28] LABS: Erythrocyte Sedimentation Rate 79 mm/hr (0-20)
[2023-01-27 06:35] LABS: Free T4 (Free Thyroxine) 0.8 ng/dL (0.89-1.76)
[2023-01-27 07:22] LABS: % Iron Saturation 7.9 % (15-50)
[2023-01-27 07:30] LABS: CRP High Sensitivity 1.74 mg/dL (<1.0)
[2023-01-27] MEDS ORDERED: LACTULOSE 20Gm/30ML SOLN PO ONE (07:30)
[2023-01-27] MEDS ORDERED: SODIUM BICARBONATE 8.4% INJ 50ML SYRINGE IV ONE (07:30)
[2023-01-27] MEDS ORDERED: SODIUM ZIRCONIUM CYCL 10 GM PAK PO ONE (07:30)
[2023-01-27] MEDS ORDERED: ALBUTEROL SULF 2.5 MG/0.5ML(0.5%) NEB SOLN NEB ONE (07:30)
[2023-01-27] MEDS ORDERED: InsuLIN REG 1unit/0.01ml Soln (100units/ml) IV ONE (07:30)
[2023-01-27] MEDS ORDERED: CALCIUM GLUC 1,000mg/50ml-NS 50 ML IV ONE (07:30)
[2023-01-27] MEDS ORDERED: FUROSEMIDE 20 MG/2 ML VIAL IV ONE (07:30)
[2023-01-27] MEDS ORDERED: DEXTROSE (50%) 50ML SYRG IV ONE (07:30)
[2023-01-27] MEDS ORDERED: ALBUTEROL MEDNEB 2.5 mg/3ml NEB ONE ×3 (07:52→16:31)
[2023-01-27] MEDS: FAMOTIDINE (10MG/ML) 2ML VL IV SCH (08:21)
[2023-01-27 09:30] LABS: Triglycerides 133 mg/dL (< 150)
[2023-01-27 09:31] LABS: LDL Cholesterol 44 mg/dL (< 100)
[2023-01-27 09:32] LABS: Cholesterol 94 mg/dL (< 200); HDL Cholesterol 26 mg/dL (40-59)
[2023-01-27] MEDS ORDERED: ASPirin 81 mg TAB PO SCH (10:00)
[2023-01-27 16:30] LABS: Hemoglobin 7.3 g/dL (12.2-16.2)
[2023-01-27 16:32] LABS: Hematocrit 22.7 % (36.0-46.0)
[2023-01-27] MEDS ORDERED: GABA-1308 PO (16:44)
[2023-01-27] MEDS ORDERED: LISI20TA56 PO (16:45)
[2023-01-27] MEDS ORDERED: ASPI325T4 PO (16:47)
[2023-01-27] MEDS ORDERED: SITA100T7 PO (16:47)
[2023-01-27] MEDS ORDERED: MELA1TAB PO (16:49)
[2023-01-27] MEDS ORDERED: CHOL200039 OR (16:50)
[2023-01-27] MEDS ORDERED: IRON SUCROSE COMPLEX 200 MG in SODIUM CHL 0.9% 100 ML IV SCH (18:00)
[2023-01-27] MEDS: SODIUM FERR GLUC 125 MG in NS 100 ML IV SCH (19:37)
[2023-01-27] MEDS: ATORVASTATIN 20 MG TAB PO SCH (21:19)
[2023-01-27] MEDS: PANTOPRAZOLE 40 MG/10 ML VIAL INJ IV SCH (21:19)
[2023-01-28] VITALS (13 sets, daily range): BP systolic 149–181; BP diastolic 53–72; PULSE 72–93; RESP 16–20; TEMP 97.3–98.6; O2SAT 96–98
[2023-01-28] MEDS: cefTRIAXone 1GM/50ML D5W 50 ML IV SCH (00:11)
[2023-01-28] MEDS: ACCU-CHEK COMFORT CURVE STRIP VI SCH ×4 (06:07→21:23)
[2023-01-28] MEDS: InsuLIN REG 1unit/0.01ml Soln (100units/ml) SC SCH ×4 (06:07→21:28)
[2023-01-28 08:04] LABS: Basophils # (auto) 0.1 10 ^3/uL (0-0.2); Eosinophils # (auto) 0.2 10 ^3/uL (0-0.8); Eosinophils % (auto) 1.5 % (0.0-7.0); Mean Corpuscular Hemoglobin 28.3 pg (28.0-32.0)
[2023-01-28 08:07] LABS: Basophils % (auto) 0.5 % (0.0-2.0); Hematocrit 19.2 % (36.0-46.0); Lymphocytes # (auto) 2.6 10 ^3/uL (0.4-5.4); Lymphocytes % (auto) 21.1 % (10.0-50.0); Mean Corpuscular Hgb Conc. 31.6 g/dL (32.0-36.0); Mean Corpuscular Volume 89.6 fL (80.0-100.0); Monocytes % (auto) 7.8 % (0.0-12.0); Neutrophils # (auto) 8.5 10 ^3/uL (1.6-8.6); Neutrophils % (auto) 69.1 % (37.0-80.0); Nucleated Red Blood Cells % 0.1 %; Red Blood Cells 2.14 10^6/uL (4.0-5.20); White Blood Cell 12.3 10^3/uL (4.4-10.8)
[2023-01-28 08:09] LABS: Hemoglobin 6.1 g/dL (12.2-16.2)
[2023-01-28 08:26] LABS: Alanine Aminotransferase 11 U/L (7-40); Albumin 2.8 g/dL (3.2-4.8); Alkaline Phosphatase 54 U/L (46-116); Anion Gap 7 (5-15); Aspartate Aminotransferase 15 U/L (13-40); Calcium 8.3 mg/dL (8.5-10.1); Carbon Dioxide 21 mmol/L (20-30); Chloride 120 mmol/L (98-107); Cholesterol 80 mg/dL (< 200); Glucose 125 mg/dL (74-106); HDL Cholesterol 23 mg/dL (40-59); LDL Cholesterol 32 mg/dL (< 100); Potassium 4.4 mmol/L (3.5-5.1); Sodium 148 mmol/L (136-145); Triglycerides 124 mg/dL (< 150)
[2023-01-28 08:27] LABS: Bilirubin, Total 0.5 mg/dL (0.2-1.0); Total Protein 4.9 g/dL (5.7-8.2)
[2023-01-28 08:33] LABS: Blood Urea Nitrogen 94 mg/dL (9-23)
[2023-01-28 09:04] LABS: INR 0.98 (0.9-1.15); Partial Thromboplastin Time 25.5 SEC (24.5-34.5); Prothrombin Time 10.3 sec (9.3-11.8)
[2023-01-28 09:25] LABS: Lipase 59 U/L (12-53)
[2023-01-28 09:26] LABS: Magnesium 2.4 mg/dL (1.6-2.6)
[2023-01-28 11:12] LABS: Folate (Folic Acid) 9.87 ng/mL (>5.38)
[2023-01-28] MEDS: PANTOPRAZOLE 40 MG/10 ML VIAL INJ IV SCH ×2 (11:16→21:23)
[2023-01-28] MEDS ORDERED: SOD CHL 0.45% 1,000 ML IV SCH (12:00)
[2023-01-28] MEDS: SODIUM FERR GLUC 125 MG in NS 100 ML IV SCH (13:04)
[2023-01-28] MEDS: ATORVASTATIN 20 MG TAB PO SCH (21:22)
[2023-01-28] MEDS: ACETAMINOPHEN 325 MG TAB PO PRN (21:23)
[2023-01-29] VITALS (8 sets, daily range): BP systolic 139–168; BP diastolic 47–78; PULSE 82–93; RESP 16–18; TEMP 98.5–99; O2SAT 93–100
[2023-01-29] MEDS: cefTRIAXone 1GM/50ML D5W 50 ML IV SCH (00:14)
[2023-01-29] MEDS ORDERED: hydrALAZINE HCL 20 MG/ML VL IV ONE (00:15)
[2023-01-29] MEDS: ACCU-CHEK COMFORT CURVE STRIP VI SCH ×4 (06:31→21:47)
[2023-01-29] MEDS: InsuLIN REG 1unit/0.01ml Soln (100units/ml) SC SCH ×4 (06:32→21:48)
[2023-01-29 06:46] LABS: Chloride 115 mmol/L (98-107); Potassium 4.6 mmol/L (3.5-5.1); Sodium 142 mmol/L (136-145)
[2023-01-29 06:47] LABS: Anion Gap 10 (5-15); Calcium 8.1 mg/dL (8.5-10.1); Carbon Dioxide 17 mmol/L (20-30)
[2023-01-29 06:52] LABS: BUN/Creatinine Ratio 24.7 (10.0-20.0); Glucose 91 mg/dL (74-106)
[2023-01-29 07:02] LABS: Blood Urea Nitrogen 54 mg/dL (9-23)
[2023-01-29 07:15] LABS: Basophils # (auto) 0.1 10 ^3/uL (0-0.2); Eosinophils # (auto) 0.3 10 ^3/uL (0-0.8); Hemoglobin 7.3 g/dL (12.2-16.2); Lymphocytes # (auto) 2.8 10 ^3/uL (0.4-5.4); Monocytes # (auto) 0.9 10 ^3/uL (0-1.3); Monocytes % (auto) 6.8 % (0.0-12.0)
[2023-01-29 07:18] LABS: Basophils % (auto) 0.9 % (0.0-2.0); Eosinophils % (auto) 2.6 % (0.0-7.0); Hematocrit 22.3 % (36.0-46.0); Lymphocytes % (auto) 21.1 % (10.0-50.0); Mean Corpuscular Hemoglobin 30.3 pg (28.0-32.0); Mean Corpuscular Hgb Conc. 32.6 g/dL (32.0-36.0); Neutrophils % (auto) 68.6 % (37.0-80.0); Nucleated Red Blood Cells % 0.2 %; Red Cell Distribution Width 16.2 % (11.8-14.3); White Blood Cell 13.2 10^3/uL (4.4-10.8)
[2023-01-29] MEDS: SODIUM BICARBONATE 50ML VIAL 50 ML in SOD CHL 0.45% 1,000 ML IV SCH ×2 (10:45→21:17)
[2023-01-29] MEDS ORDERED: NALOXONE HCL 0.4 MG/ML VIAL ONE (10:56)
[2023-01-29] MEDS ORDERED: FLUMAZENIL 0.1 MG/ML INJ 10ML MDV IV ONE (10:56)
[2023-01-29] MEDS ORDERED: SODIUM CHLORIDE LOCK 10 ML ONE (10:56)
[2023-01-29] MEDS ORDERED: LIDOCAINE VISCOUS 2% 15ML UD ONE (10:57)
[2023-01-29] MEDS ORDERED: MIDAZOLAM HCL 5 MG/ML-1ML VIAL ONE (10:58)
[2023-01-29] MEDS ORDERED: diphenhdrAMINE HCL 50 MG/1 ML VL ONE (10:58)
[2023-01-29] MEDS ORDERED: fentaNYL CITRATE 100 MCG/2 ML VL ONE (10:58)
[2023-01-29] MEDS: PANTOPRAZOLE 40 MG/10 ML VIAL INJ IV SCH ×2 (12:19→21:45)
[2023-01-29] MEDS ORDERED: GOLYTELY 4L KIT PO ONE (16:00)
[2023-01-29] MEDS: SODIUM FERR GLUC 125 MG in NS 100 ML IV SCH (16:53)
[2023-01-29] MEDS: ATORVASTATIN 20 MG TAB PO SCH (21:46)
[2023-01-30] VITALS (8 sets, daily range): BP systolic 165–187; BP diastolic 48–69; PULSE 91–101; RESP 17–20; TEMP 98.2–98.5; O2SAT 95–100
[2023-01-30] MEDS: cefTRIAXone 1GM/50ML D5W 50 ML IV SCH ×2 (00:50→23:56)
[2023-01-30] MEDS ORDERED: GOLYTELY 4L KIT PO ONE ×2 (06:00→16:00)
[2023-01-30] MEDS: InsuLIN REG 1unit/0.01ml Soln (100units/ml) SC SCH ×4 (06:58→22:00)
[2023-01-30] MEDS: ACCU-CHEK COMFORT CURVE STRIP VI SCH ×4 (06:58→22:00)
[2023-01-30] MEDS ORDERED: POLYETHYLENE GLYCOL 17 GM PWDR PO ONE (08:30)
[2023-01-30 09:12] LABS: Basophils # (auto) 0.1 10 ^3/uL (0-0.2); Basophils % (auto) 0.6 % (0.0-2.0); Eosinophils # (auto) 0.1 10 ^3/uL (0-0.8); Eosinophils % (auto) 0.9 % (0.0-7.0); Hematocrit 23.3 % (36.0-46.0); Hemoglobin 7.3 g/dL (12.2-16.2); Lymphocytes # (auto) 1.6 10 ^3/uL (0.4-5.4); Lymphocytes % (auto) 12.8 % (10.0-50.0); Mean Corpuscular Hemoglobin 29.2 pg (28.0-32.0); Mean Corpuscular Hgb Conc. 31.3 g/dL (32.0-36.0); Mean Corpuscular Volume 93.2 fL (80.0-100.0); Monocytes # (auto) 0.8 10 ^3/uL (0-1.3); Monocytes % (auto) 6.5 % (0.0-12.0); Neutrophils # (auto) 9.8 10 ^3/uL (1.6-8.6); Neutrophils % (auto) 79.2 % (37.0-80.0); Nucleated Red Blood Cells % 0.1 %; Red Cell Distribution Width 15.9 % (11.8-14.3); White Blood Cell 12.3 10^3/uL (4.4-10.8)
[2023-01-30 09:19] LABS: Chloride 113 mmol/L (98-107); Potassium 4.2 mmol/L (3.5-5.1); Sodium 143 mmol/L (136-145)
[2023-01-30 09:20] LABS: Anion Gap 10 (5-15); Carbon Dioxide 20 mmol/L (20-30)
[2023-01-30 09:21] LABS: Calcium 8.1 mg/dL (8.5-10.1)
[2023-01-30 09:25] LABS: Glucose 103 mg/dL (74-106)
[2023-01-30 09:26] LABS: BUN/Creatinine Ratio 21.6 (10.0-20.0); Blood Urea Nitrogen 42 mg/dL (9-23)
[2023-01-30] MEDS: SODIUM BICARBONATE 50ML VIAL 50 ML in SOD CHL 0.45% 1,000 ML IV SCH ×2 (09:28→18:00)
[2023-01-30] MEDS: PANTOPRAZOLE 40 MG/10 ML VIAL INJ IV SCH ×2 (09:28→22:00)
[2023-01-30] MEDS ORDERED: NALOXONE HCL 0.4 MG/ML VIAL ONE (09:50)
[2023-01-30] MEDS ORDERED: SODIUM CHLORIDE LOCK 10 ML ONE (09:50)
[2023-01-30] MEDS ORDERED: FLUMAZENIL 0.1 MG/ML INJ 10ML MDV IV ONE (09:50)
[2023-01-30] MEDS ORDERED: diphenhdrAMINE HCL 50 MG/1 ML VL ONE (09:51)
[2023-01-30] MEDS ORDERED: MIDAZOLAM HCL 5 MG/ML-1ML VIAL ONE (09:51)
[2023-01-30] MEDS ORDERED: fentaNYL CITRATE 100 MCG/2 ML VL ONE ×2 (09:52→15:29)
[2023-01-30 11:35] LABS: Creatinine, Urine 29.35 mg/dL (30.0-125.0); Protein, Urine 140.5 mg/dL (0.0-11.9); Urine Protein/Creatinine Ratio 4.79
[2023-01-30 11:50] LABS: Urine Bacteria NONE SEEN /hpf (None Seen); Urine Blood Negative /uL (Negative); Urine Clarity Clear (Clear); Urine Color Colorless (Yellow); Urine Protein, UAD 2+ (Negative); Urine Specific Gravity 1.011 (1.001-1.035); Urine Urobilinogen Normal (Negative); Urine WBC 3 /hpf (0 - 5)
[2023-01-30] MEDS ORDERED: MIDAZOLAM HCL 2MG/2ML 2ml VIAL (1mg/ml) ONE (15:29)
[2023-01-30] MEDS ORDERED: PROPOFOL 10 MG/ML 20 ML IV ONE (15:36)
[2023-01-30] MEDS ORDERED: ONDANSETRON HCL 4 MG/2 ML VIAL ONE (15:38)
[2023-01-30] MEDS ORDERED: LIDOCAINE 2% (LOCAL ANESTH.) PF 5ml SDV ONE (15:38)
[2023-01-30] MEDS ORDERED: ONDANSETRON HCL 4 MG/2 ML VIAL IV PRN (16:15)
[2023-01-30] MEDS: SODIUM FERR GLUC 125 MG in NS 100 ML IV SCH (16:49)
[2023-01-30] MEDS: ATORVASTATIN 20 MG TAB PO SCH (22:00)
[2023-01-31] VITALS (13 sets, daily range): BP systolic 130–190; BP diastolic 58–78; PULSE 68–101; RESP 16–19; TEMP 98–99.1; O2SAT 93–95
[2023-01-31] MEDS: SODIUM BICARBONATE 50ML VIAL 50 ML in SOD CHL 0.45% 1,000 ML IV SCH (04:45)
[2023-01-31] MEDS: InsuLIN REG 1unit/0.01ml Soln (100units/ml) SC SCH ×4 (05:44→21:38)
[2023-01-31] MEDS: ACCU-CHEK COMFORT CURVE STRIP VI SCH ×4 (05:44→21:38)
[2023-01-31] MEDS ORDERED: GOLYTELY 4L KIT PO ONE (06:00)
[2023-01-31 08:12] LABS: Basophils # (auto) 0.1 10 ^3/uL (0-0.2); Eosinophils # (auto) 0.1 10 ^3/uL (0-0.8)
[2023-01-31 08:14] LABS: Basophils % (auto) 0.5 % (0.0-2.0); Eosinophils % (auto) 1.1 % (0.0-7.0); Hematocrit 21.5 % (36.0-46.0); Lymphocytes # (auto) 1.5 10 ^3/uL (0.4-5.4); Mean Corpuscular Hemoglobin 29.5 pg (28.0-32.0); Mean Corpuscular Hgb Conc. 31.8 g/dL (32.0-36.0); Mean Corpuscular Volume 92.7 fL (80.0-100.0); Monocytes # (auto) 0.9 10 ^3/uL (0-1.3); Monocytes % (auto) 7.8 % (0.0-12.0); Neutrophils % (auto) 77.6 % (37.0-80.0); Red Blood Cells 2.32 10^6/uL (4.0-5.20); Red Cell Distribution Width 16.2 % (11.8-14.3); White Blood Cell 11.5 10^3/uL (4.4-10.8)
[2023-01-31 08:18] LABS: Hemoglobin 6.8 g/dL (12.2-16.2)
[2023-01-31] MEDS: PANTOPRAZOLE 40 MG/10 ML VIAL INJ IV SCH ×2 (08:24→21:38)
[2023-01-31] MEDS: POLYETHYLENE GLYCOL 17 GM PWDR PO SCH (08:24)
[2023-01-31 08:36] LABS: Albumin 2.8 g/dL (3.2-4.8); Alkaline Phosphatase 62 U/L (46-116); Anion Gap 11 (5-15); Aspartate Aminotransferase 19 U/L (13-40); BUN/Creatinine Ratio 15.4 (10.0-20.0); Bilirubin, Total 0.6 mg/dL (0.2-1.0); Blood Urea Nitrogen 27 mg/dL (9-23); Calcium 8.1 mg/dL (8.5-10.1); Carbon Dioxide 22 mmol/L (20-30); Chloride 111 mmol/L (98-107); Glucose 98 mg/dL (74-106); Potassium 4.1 mmol/L (3.5-5.1); Sodium 144 mmol/L (136-145)
[2023-01-31 08:37] LABS: Alanine Aminotransferase < 9 U/L (7-40)
[2023-01-31 09:30] LABS: Magnesium 1.8 mg/dL (1.6-2.6)
[2023-01-31] MEDS: SODIUM FERR GLUC 125 MG in NS 100 ML IV SCH (12:00)
[2023-01-31] MEDS: hydrALAZINE HCL 20 MG/ML VL IV PRN ×2 (16:10→21:39)
[2023-01-31] MEDS: ATORVASTATIN 20 MG TAB PO SCH (21:37)
[2023-01-31] MEDS ORDERED: POLYETHYLENE GLYCOL 17 GM PWDR PO ONE ×2 (23:30)
[2023-01-31] MEDS: cefTRIAXone 1GM/50ML D5W 50 ML IV SCH (23:58)
[2023-02-01] VITALS (8 sets, daily range): BP systolic 134–178; BP diastolic 51–63; PULSE 85–99; RESP 14–19; TEMP 98.3–98.9; O2SAT 91–97
[2023-02-01] MEDS ORDERED: POLYETHYLENE GLYCOL 17 GM PWDR PO ONE (06:00)
[2023-02-01] MEDS ORDERED: GOLYTELY 4L KIT PO ONE (06:00)
[2023-02-01 06:08] LABS: Basophils # (auto) 0.1 10 ^3/uL (0-0.2); Basophils % (auto) 0.6 % (0.0-2.0); Eosinophils # (auto) 0.1 10 ^3/uL (0-0.8); Eosinophils % (auto) 1.1 % (0.0-7.0); Hematocrit 25.3 % (36.0-46.0); Hemoglobin 8.5 g/dL (12.2-16.2); Lymphocytes # (auto) 1.4 10 ^3/uL (0.4-5.4); Lymphocytes % (auto) 10.6 % (10.0-50.0); Mean Corpuscular Hemoglobin 30.9 pg (28.0-32.0); Mean Corpuscular Hgb Conc. 33.6 g/dL (32.0-36.0); Mean Corpuscular Volume 91.7 fL (80.0-100.0); Monocytes # (auto) 1.1 10 ^3/uL (0-1.3); Monocytes % (auto) 8.1 % (0.0-12.0); Neutrophils # (auto) 10.5 10 ^3/uL (1.6-8.6); Neutrophils % (auto) 79.6 % (37.0-80.0); Red Blood Cells 2.76 10^6/uL (4.0-5.20); Red Cell Distribution Width 16.3 % (11.8-14.3); White Blood Cell 13.2 10^3/uL (4.4-10.8)
[2023-02-01 06:11] LABS: Anion Gap 11 (5-15); Carbon Dioxide 22 mmol/L (20-30); Chloride 109 mmol/L (98-107); Potassium 3.8 mmol/L (3.5-5.1); Sodium 142 mmol/L (136-145)
[2023-02-01 06:12] LABS: Calcium 8.3 mg/dL (8.7-10.4)
[2023-02-01 06:17] LABS: BUN/Creatinine Ratio 12.3 (10.0-20.0); Blood Urea Nitrogen 22 mg/dL (9-23); Glucose 97 mg/dL (74-106)
[2023-02-01 06:20] LABS: INR 1.01 (0.9-1.15); Partial Thromboplastin Time 29.5 SEC (24.5-34.5); Prothrombin Time 10.6 sec (9.3-11.8)
[2023-02-01] MEDS: ACCU-CHEK COMFORT CURVE STRIP VI SCH ×4 (06:37→22:13)
[2023-02-01] MEDS: InsuLIN REG 1unit/0.01ml Soln (100units/ml) SC SCH ×4 (06:38→22:13)
[2023-02-01] MEDS: PANTOPRAZOLE 40 MG/10 ML VIAL INJ IV SCH ×2 (09:55→21:56)
[2023-02-01] MEDS: POLYETHYLENE GLYCOL 17 GM PWDR PO SCH (09:55)
[2023-02-01] MEDS ORDERED: LISINOPRIL 20 MG TAB PO SCH (10:00)
[2023-02-01] MEDS: SODIUM FERR GLUC 125 MG in NS 100 ML IV SCH (12:09)
[2023-02-01] MEDS: amLODIPine BESYLATE 5 MG TAB PO SCH (12:37)
[2023-02-01] MEDS ORDERED: MIDAZOLAM HCL 5 MG/ML-1ML VIAL ONE (12:39)
[2023-02-01] MEDS ORDERED: SODIUM CHLORIDE LOCK 10 ML ONE (12:40)
[2023-02-01] MEDS ORDERED: fentaNYL CITRATE 100 MCG/2 ML VL ONE ×2 (12:40→16:28)
[2023-02-01] MEDS ORDERED: diphenhdrAMINE HCL 50 MG/1 ML VL ONE (12:40)
[2023-02-01] MEDS ORDERED: MIDAZOLAM HCL 2MG/2ML 2ml VIAL (1mg/ml) ONE (16:28)
[2023-02-01] MEDS ORDERED: PROPOFOL 10 MG/ML 20 ML IV ONE (16:48)
[2023-02-01] MEDS ORDERED: ONDANSETRON HCL 4 MG/2 ML VIAL ONE (16:48)
[2023-02-01] MEDS ORDERED: ONDANSETRON HCL 4 MG/2 ML VIAL IV PRN (17:00)
[2023-02-01] MEDS: ATORVASTATIN 20 MG TAB PO SCH (21:57)
[2023-02-01] MEDS: cefTRIAXone 1GM/50ML D5W 50 ML IV SCH (23:38)
[2023-02-02] VITALS (8 sets, daily range): BP systolic 117–153; BP diastolic 42–64; PULSE 82–91; RESP 16–20; TEMP 98.2–98.9; O2SAT 93–97
[2023-02-02] MEDS: InsuLIN REG 1unit/0.01ml Soln (100units/ml) SC SCH ×4 (05:52→22:22)
[2023-02-02] MEDS: ACCU-CHEK COMFORT CURVE STRIP VI SCH ×4 (05:52→22:23)
[2023-02-02 05:55] LABS: Basophils # (auto) 0.1 10 ^3/uL (0-0.2); Basophils % (auto) 0.7 % (0.0-2.0); Eosinophils # (auto) 0.3 10 ^3/uL (0-0.8); Hemoglobin 7.7 g/dL (12.2-16.2); Neutrophils # (auto) 7.3 10 ^3/uL (1.6-8.6); Nucleated Red Blood Cells % 0.1 %
[2023-02-02 05:57] LABS: Eosinophils % (auto) 3.1 % (0.0-7.0); Hematocrit 22.9 % (36.0-46.0); Lymphocytes # (auto) 1.7 10 ^3/uL (0.4-5.4); Lymphocytes % (auto) 16.8 % (10.0-50.0); Mean Corpuscular Hemoglobin 30.8 pg (28.0-32.0); Mean Corpuscular Hgb Conc. 33.5 g/dL (32.0-36.0); Mean Corpuscular Volume 91.8 fL (80.0-100.0); Monocytes # (auto) 0.9 10 ^3/uL (0-1.3); Monocytes % (auto) 8.8 % (0.0-12.0); Neutrophils % (auto) 70.6 % (37.0-80.0); Red Blood Cells 2.49 10^6/uL (4.0-5.20); Red Cell Distribution Width 16.8 % (11.8-14.3); White Blood Cell 10.4 10^3/uL (4.4-10.8)
[2023-02-02 06:02] LABS: Anion Gap 9 (5-15); Carbon Dioxide 21 mmol/L (20-30); Chloride 110 mmol/L (98-107); Potassium 3.7 mmol/L (3.5-5.1); Sodium 140 mmol/L (136-145)
[2023-02-02 06:04] LABS: Calcium 8.1 mg/dL (8.7-10.4)
[2023-02-02 06:08] LABS: BUN/Creatinine Ratio 9.5 (10.0-20.0); Blood Urea Nitrogen 20 mg/dL (9-23); Glucose 106 mg/dL (74-106)
[2023-02-02] MEDS: POLYETHYLENE GLYCOL 17 GM PWDR PO SCH (10:00)
[2023-02-02] MEDS: amLODIPine BESYLATE 5 MG TAB PO SCH (10:55)
[2023-02-02] MEDS: PANTOPRAZOLE 40 MG/10 ML VIAL INJ IV SCH ×2 (10:56→22:08)
[2023-02-02] MEDS: SODIUM FERR GLUC 125 MG in NS 100 ML IV SCH (12:26)
[2023-02-02] MEDS: ACETAMINOPHEN 325 MG TAB PO PRN (22:08)
[2023-02-02] MEDS: ATORVASTATIN 20 MG TAB PO SCH (22:09)
[2023-02-02] MEDS: cefTRIAXone 1GM/50ML D5W 50 ML IV SCH (23:42)
[2023-02-03] VITALS (8 sets, daily range): BP systolic 126–153; BP diastolic 45–67; PULSE 74–92; RESP 16–20; TEMP 97.9–99; O2SAT 95–97
[2023-02-03 05:05] LABS: Urine Bacteria NONE SEEN /hpf (None Seen); Urine Blood TRACE /uL (Negative); Urine Clarity Clear (Clear); Urine Color Yellow (Yellow); Urine Hyaline Cast FEW /lpf (0 - 2); Urine Protein, UAD TRACE (Negative); Urine Specific Gravity 1.021 (1.001-1.035); Urine Urobilinogen Normal (Negative); Urine WBC 39 /hpf (0 - 5)
[2023-02-03] MEDS: InsuLIN REG 1unit/0.01ml Soln (100units/ml) SC SCH ×4 (05:43→22:00)
[2023-02-03] MEDS: ACCU-CHEK COMFORT CURVE STRIP VI SCH ×4 (05:44→22:08)
[2023-02-03] MEDS: POLYETHYLENE GLYCOL 17 GM PWDR PO SCH (10:00)
[2023-02-03] MEDS: PANTOPRAZOLE 40 MG/10 ML VIAL INJ IV SCH ×2 (10:17→22:00)
[2023-02-03] MEDS: amLODIPine BESYLATE 5 MG TAB PO SCH (10:17)
[2023-02-03] MEDS ORDERED: SODIUM FERR GLUC 62.5MG/5ML 125 MG in SODIUM CHL 0.9% 100 ML IV ONE (12:00)
[2023-02-03] MEDS: SODIUM FERR GLUC 125 MG in NS 100 ML IV SCH (12:33)
[2023-02-03 13:35] LABS: Basophils # (auto) 0.1 10 ^3/uL (0-0.2); Eosinophils # (auto) 0.2 10 ^3/uL (0-0.8); Lymphocytes # (auto) 1.3 10 ^3/uL (0.4-5.4); Monocytes # (auto) 0.7 10 ^3/uL (0-1.3); Neutrophils # (auto) 6.5 10 ^3/uL (1.6-8.6); White Blood Cell 8.8 10^3/uL (4.4-10.8)
[2023-02-03 13:37] LABS: Basophils % (auto) 0.7 % (0.0-2.0); Eosinophils % (auto) 2.4 % (0.0-7.0); Hematocrit 22.9 % (36.0-46.0); Hemoglobin 7.7 g/dL (12.2-16.2); Mean Corpuscular Hemoglobin 30.9 pg (28.0-32.0); Mean Corpuscular Hgb Conc. 33.4 g/dL (32.0-36.0); Mean Corpuscular Volume 92.3 fL (80.0-100.0); Monocytes % (auto) 8.1 % (0.0-12.0); Neutrophils % (auto) 73.8 % (37.0-80.0); Red Blood Cells 2.49 10^6/uL (4.0-5.20); Red Cell Distribution Width 16.1 % (11.8-14.3)
[2023-02-03] MEDS ORDERED: HEPARIN DRIP/D5W 100UNITS/ML 250 ML IV SCH ×2 (14:45→23:45)
[2023-02-03] MEDS ORDERED: HEPARIN SODIUM (PORCINE) 5000 UNITS/ML 1ML VIAL IV ONE (14:45)
[2023-02-03 15:34] LABS: Basophils # (auto) 0.1 10 ^3/uL (0-0.2); Basophils % (auto) 0.8 % (0.0-2.0); Eosinophils # (auto) 0.2 10 ^3/uL (0-0.8); Eosinophils % (auto) 2.3 % (0.0-7.0); Hematocrit 25.8 % (36.0-46.0); Hemoglobin 8.1 g/dL (12.2-16.2); Lymphocytes # (auto) 1.5 10 ^3/uL (0.4-5.4); Lymphocytes % (auto) 15.7 % (10.0-50.0); Mean Corpuscular Hemoglobin 30.3 pg (28.0-32.0); Mean Corpuscular Hgb Conc. 31.3 g/dL (32.0-36.0); Mean Corpuscular Volume 97.1 fL (80.0-100.0); Monocytes # (auto) 0.8 10 ^3/uL (0-1.3); Monocytes % (auto) 8.1 % (0.0-12.0); Neutrophils # (auto) 7.2 10 ^3/uL (1.6-8.6); Neutrophils % (auto) 73.1 % (37.0-80.0); Nucleated Red Blood Cells % 0.1 %; Red Blood Cells 2.66 10^6/uL (4.0-5.20); Red Cell Distribution Width 16.6 % (11.8-14.3); White Blood Cell 9.8 10^3/uL (4.4-10.8)
[2023-02-03 16:32] LABS: INR 0.99 (0.9-1.15); Partial Thromboplastin Time 34.6 SEC (24.5-34.5); Prothrombin Time 10.4 sec (9.3-11.8)
[2023-02-03] MEDS: ATORVASTATIN 20 MG TAB PO SCH (22:00)
[2023-02-03 23:17] LABS: INR 0.98 (0.9-1.15); Partial Thromboplastin Time 41.2 SEC (24.5-34.5); Prothrombin Time 10.3 sec (9.3-11.8)
[2023-02-04] MEDS: cefTRIAXone 1GM/50ML D5W 50 ML IV SCH (00:54)
[2023-02-04 05:01] VITALS: BP 135/59; PULSE 88; RESP 18; TEMP 98.4; O2SAT 98
[2023-02-04 06:44] LABS: Eosinophils # (auto) 0.2 10 ^3/uL (0-0.8); Hemoglobin 7.7 g/dL (12.2-16.2); Lymphocytes # (auto) 2.2 10 ^3/uL (0.4-5.4); Mean Corpuscular Hemoglobin 30.4 pg (28.0-32.0); Mean Corpuscular Hgb Conc. 32.7 g/dL (32.0-36.0); Monocytes # (auto) 0.8 10 ^3/uL (0-1.3); Monocytes % (auto) 8.4 % (0.0-12.0); Neutrophils # (auto) 6.4 10 ^3/uL (1.6-8.6); Nucleated Red Blood Cells % 0.1 %; White Blood Cell 9.7 10^3/uL (4.4-10.8)
[2023-02-04 06:47] LABS: Basophils # (auto) 0 10 ^3/uL (0-0.2); Basophils % (auto) 0.2 % (0.0-2.0); Eosinophils % (auto) 2.5 % (0.0-7.0); Hematocrit 23.5 % (36.0-46.0); Lymphocytes % (auto) 22.8 % (10.0-50.0); Mean Corpuscular Volume 92.9 fL (80.0-100.0); Neutrophils % (auto) 66.1 % (37.0-80.0); Red Blood Cells 2.52 10^6/uL (4.0-5.20); Red Cell Distribution Width 15.8 % (11.8-14.3)
[2023-02-04 06:56] LABS: Chloride 108 mmol/L (98-107); Potassium 3.9 mmol/L (3.5-5.1); Sodium 138 mmol/L (136-145)
[2023-02-04 06:57] LABS: Anion Gap 9 (5-15); Carbon Dioxide 21 mmol/L (20-30)
[2023-02-04] MEDS: InsuLIN REG 1unit/0.01ml Soln (100units/ml) SC SCH ×2 (07:00→12:07)
[2023-02-04 07:02] LABS: BUN/Creatinine Ratio 8.4 (10.0-20.0); Blood Urea Nitrogen 16 mg/dL (9-23); Glucose 94 mg/dL (74-106)
[2023-02-04] MEDS: ACCU-CHEK COMFORT CURVE STRIP VI SCH ×2 (07:02→12:06)
[2023-02-04 08:00] VITALS: BP 141/59; PULSE 83; PULSE 87; PULSE 88; RESP 18; RESP 21; TEMP 97.9; O2SAT 95; O2SAT 96
[2023-02-04] MEDS: amLODIPine BESYLATE 5 MG TAB PO SCH (09:26)
[2023-02-04] MEDS: PANTOPRAZOLE 40 MG/10 ML VIAL INJ IV SCH (09:26)
[2023-02-04] MEDS: POLYETHYLENE GLYCOL 17 GM PWDR PO SCH (09:26)
[2023-02-04] MEDS ORDERED: PANT40TA2 PO (09:28)
[2023-02-04 12:00] VITALS: BP 148/69; PULSE 86; RESP 20; TEMP 98.2; O2SAT 95
[2023-02-04] MEDS: SODIUM FERR GLUC 125 MG in NS 100 ML IV SCH (12:00)
[2023-02-04 13:36] VITALS: BP 141/59
== END 2023-02-04 15:40 | disposition home health service (06) | DRG 378 ==
LOC: ER 15:44 → TELE 19:41 → TELE-WESTW 01-27 15:52
PROVIDERS: ADMIT Nurse Practitioner Family; ATTEND Internal Medicine Geriatric Medicine
PROC: 30233N1 Transfusion of Nonautologous Red Blood Cells into Peripheral Vein, Percutaneous Approach (ICD-10-PCS; 2023-01-26)
PROC: 0DB78ZX Excision of Stomach, Pylorus, Via Natural or Artificial Opening Endoscopic, Diagnostic (ICD-10-PCS; 2023-01-29)
PROC: 0DB98ZX Excision of Duodenum, Via Natural or Artificial Opening Endoscopic, Diagnostic (ICD-10-PCS; principal; 2023-01-29 15:40)
PROC: 0DJD8ZZ Inspection of Lower Intestinal Tract, Via Natural or Artificial Opening Endoscopic (ICD-10-PCS; 2023-01-30)
PROC: 0DBM8ZX Excision of Descending Colon, Via Natural or Artificial Opening Endoscopic, Diagnostic (ICD-10-PCS; 2023-02-01)
PROC: 0DBL8ZX Excision of Transverse Colon, Via Natural or Artificial Opening Endoscopic, Diagnostic (ICD-10-PCS; 2023-02-01)
PROC: 0DBN8ZZ Excision of Sigmoid Colon, Via Natural or Artificial Opening Endoscopic (ICD-10-PCS; 2023-02-01)
DX: K29.71 Gastritis, unspecified, with bleeding (principal); E44.1 Mild protein-calorie malnutrition; I82.612 Acute embolism and thrombosis of superficial veins of left upper extremity; I12.0 Hypertensive chronic kidney disease with stage 5 chronic kidney disease or end stage renal disease; N17.9 Acute kidney failure, unspecified; N18.5 Chronic kidney disease, stage 5; I69.351 Hemiplegia and hemiparesis following cerebral infarction affecting right dominant side; N39.0 Urinary tract infection, site not specified; E87.1 Hypo-osmolality and hyponatremia; Q43.8 Other specified congenital malformations of intestine; K29.81 Duodenitis with bleeding; K63.5 Polyp of colon; K56.41 Fecal impaction; K64.8 Other hemorrhoids; E11.65 Type 2 diabetes mellitus with hyperglycemia; E66.9 Obesity, unspecified; N28.1 Cyst of kidney, acquired; E78.5 Hyperlipidemia, unspecified; E87.5 Hyperkalemia; I80.8 Phlebitis and thrombophlebitis of other sites; F32.A Depression, unspecified; D50.0 Iron deficiency anemia secondary to blood loss (chronic); E11.22 Type 2 diabetes mellitus with diabetic chronic kidney disease; E86.0 Dehydration; Z74.01 Bed confinement status; Z82.49 Family history of ischemic heart disease and other diseases of the circulatory system; Z83.3 Family history of diabetes mellitus; Z79.4 Long term (current) use of insulin; Z79.82 Long term (current) use of aspirin; Z79.84 Long term (current) use of oral hypoglycemic drugs; Z68.28 Body mass index [BMI] 28.0-28.9, adult
CPT/HCPCS: 36415; 70450; 71045; 76775; 80048; 80053; 80061; 81001; 82270; 82306; 82570; 82607; 82668; 82728; 82746; 82962; 83010; 83036; 83540; 83550; 83690; 83735; 83880; 83970; 84100; 84132; 84156; 84300; 84439; 84443; 84484; 85014; 85018; 85025; 85610; 85652; 85730; 86141; 86850; 86880; 86900; 86901; 86920; 87086; 93005; 93306; 93971; 94640; C9113; G0378; J0696; J1815; J2001; J2250; J2405; J2704; J3490